=== PATIENT | female | born 1985 | race Asian ===

== ENCOUNTER → 2018-05-31 | Emergency (ER) | payer SELFPAY, MEDICAID ==
[~2018-05-31] VITALS: Ht 160 cm; Wt 45.4 kg
[2018-05-31 17:45] VITALS: BP 112/75
--- NOTE | 2018-05-31 18:02 | Emergency Room Report ---
History of Present Illness General Chief Complaint: Medical Clearance Source: Patient Present Illness HPI 33-year-old female with no significant past medical history brought in by the Social Worker Assistant Department in handcuffs, complaining of no pain however reports that she is 6 months . Patient denies any abdominal cramping, vaginal bleeding, vaginal spotting, painful urination, shortness of breath, palpitation , chest pain, dizziness, nausea or vomiting. Patient further denies any injury. She reports her LMP was in October 2017. Her last [employer]UFACT[employer]ING TECH visit was one month ago and everything was within normal limits. Patient had her [facility] OB ultrasound done 1 month ago all within normal limits. patient feels movements on daily basis. Allergies: Coded Allergies: No Known Allergies (Unverified , 05/31/18) Patient History Past Medical History: see triage record Past Surgical History: unable to obtain Pertinent Family History: unable to obtain Now: Yes - Patient reports being 6 months : 1 Para: 1 Immunizations: UTD Reviewed Nursing Documentation: PMH: Agreed; PSxH: Agreed Nursing Documentation-PMH Past Medical History: No Stated History Review of Systems All Other Systems: negative except mentioned in HPI Physical Exam Vital Signs Date Time Temp Pulse Resp B/P (MAP) Pulse Ox O2 Delivery O2 Flow Rate FiO2 05/31/18 17:41 97.3 89 18 112/75 97 Room Air Sp02 EP Interpretation: reviewed, normal General Appearance: normal inspection, well appearing, no apparent distress, alert, GCS 15 Head: normocephalic, atraumatic Eyes: bilateral eye normal inspection, bilateral eye PERRL ENT: normal ENT inspection, normal pharynx, normal voice Neck: normal inspection, full range of motion, supple Respiratory: normal inspection, lungs clear, no rhonchi, no wheezing Cardiovascular #1: normal inspection, no edema, no murmur Gastrointestinal: normal inspection, no mass, no organomegaly, no guarding, no pulsatile mass, other - gravid abdomen Rectal: deferred Genitourinary: deferred Musculoskeletal: normal inspection, back normal, digits/nails normal, gait/ station normal Neurologic: normal inspection, alert, oriented x3, responsive, tissue specialist III-XII nml as tested Psychiatric: normal inspection, judgement/insight normal, memory normal Skin: normal inspection, normal color, no rash, warm/dry, palpation normal Lymphatic: normal inspection, no adenopathy Medical Decision Making PA Attestation all diagnoses and treatment plans are reviewed and discussed with my supervising physician Dr. Hopkins Diagnostic Impression: Primary Impression: Intrauterine ER Course 33-year-old female with no significant past medical history brought in by the Social Worker Assistant Department in handcuffs, complaining of no pain however reports that she is 6 months . Patient denies any abdominal cramping, vaginal bleeding, vaginal spotting, painful urination, shortness of breath, palpitation , chest pain, dizziness, nausea or vomiting. Patient further denies any injury. She reports her LMP was in October 2017. Her last MANUFACT[employer]ING TECH visit was one month ago and everything was within normal limits. Patient had her [facility] OB ultrasound done 1 month ago all within normal limits. patient feels movements on daily basis. Ddx considered but are not limited to intrauterine , spontaneous , threatened Vital signs: are WNL, pt. is afebrile H&PE are most consistent with IUP ORDERS: urine test ED INTERVENTIONS: None required at this time. DISCHARGE: At this time pt. is stable for d/c to home. Will provide printed patient care instructions, and any necessary prescriptions. Care plan and follow up instructions have been discussed with the patient prior to discharge. patient appeared to be clear medically as she is feeling movements has no vaginal discharge or cramping or bleeding and last OB visit and ultrasound over a month ago positive urine test Last Vital Signs Date Time Temp Pulse Resp B/P (MAP) Pulse Ox O2 Delivery O2 Flow Rate FiO2 05/31/18 17:41 97.3 89 18 112/75 97 Room Air Disposition: D/C TO [facility] IN [facility] Condition: Stable Patient Instructions: Eating Plan for Women Additional Instructions: follow-up with MANUFACT[employer]ING TECH for further assessment of if vaginal spotting, cramping, bleeding, and unable to feel movement return to the emergency room. Brannon Hutchison May 31, 2018 18:02
[2018-05-31 18:28] VITALS: BP 112/75
== END ==
LOC: EMR 17:57
DX: O26.92 Pregnancy related conditions, unspecified, second trimester (principal); Z3A.00 Weeks of gestation of pregnancy not specified; R52 Pain, unspecified
CPT/HCPCS: 81025; 99283